=== PATIENT | female | born 1975 | race Caucasian/White ===

== ENCOUNTER 2025-01-21 09:10 | Emergency (ER) | payer SELFPAY ==
--- NOTE | 2025-01-21 10:16 | XR ---
EXAMINATION TYPE: XR hand complete RT DATE OF EXAM: 01/21/2025 10:06 AM COMPARISON: None. CLINICAL INDICATION: Female, 49 years old with history of pain, injury TECHNIQUE: Frontal, lateral and oblique images of the right hand are obtained. FINDINGS: There is no acute fracture/dislocation evident in the right hand. The joint spaces in the right hand appear within normal limits. The overlying soft tissue appears unremarkable. IMPRESSION: There is no acute fracture or dislocation in the right hand. [facility], , 01/21/2025 10:14 AM
--- NOTE | 2025-01-21 10:17 | XR ---
EXAMINATION TYPE: XR ribs RT w pa chest xray DATE OF EXAM: 01/21/2025 10:06 AM COMPARISON: None. CLINICAL INDICATION: Female, 49 years old with history of pain, falling injury. TECHNIQUE: Single frontal view of the chest is obtained. A frontal and oblique images of the right-si ded ribs. FINDINGS: There is no focal air space opacity, pleural effusion, or pneumothorax seen. The cardiac silhouette size is within normal limits. The osseous structures are intact. No acute displaced right-sided rib fracture is identified. Overlying soft tissue is unremarkable. IMPRESSION: No acute process. [facility], , 01/21/2025 10:15 AM
--- NOTE | 2025-01-21 10:20 | CT ---
EXAMINATION TYPE: CT brain jocelyn singh con DATE OF EXAM: 01/21/2025 COMPARISON: NONE HISTORY: pain after fall out of truck and hit head CT DLP: 1250.8 mGycm. Automated Exposure Control for Dose Reduction was Utilized. TECHNIQUE: CT scan of the head and cervical spine are performed without contrast. FINDINGS: There is no acute intracranial hemorrhage, mass effect, or midline shift identified. The ventricles and sulci are within normal limits in size. Chin-white matter differentiation is maintain ed. The calvarium is intact. At least partial empty sella morphology is noted. The globes are intact and the visualized sinuses are clear. Cervical spine is visualized in its entirety from C1 through upper thoracic levels and demonstrates s atisfactory alignment without evidence of acute fracture or dislocation. Prevertebral soft tissue ap pears within normal limits. The C1-C2 articulation is within normal limits on the coronal images. V ertebral body heights are maintained. Mild disc space narrowing with mild to moderate spurring at C6- C7 level. Lung apices are clear without pneumothorax. Thyroid gland is normal in size. IMPRESSION: 1. There is no acute fracture or dislocation evident in the cervical spine. 2. No acute intracranial hemorrhage or midline shift is seen. [facility], , 01/21/2025 10:17 AM
--- NOTE | 2025-01-21 10:21 | ED ---
Fall HPI - General Chief Complaint: Fall Stated Complaint: right side rib and shoulder blade pain -fell Time Seen by Provider: 01/21/25 09:19 Source: patient, RN notes reviewed Mode of arrival: ambulatory Limitations: no limitations - History of Present Illness Initial Comments: 49-year-old female presents emergency department complaint of slip and fall. She states she slipped getting out of her truck and states that she struck the running board. She states she struck her head,, complains of right sided rib right hand pain. She denies any back pain denies any hip pain. Patient is able to ambulate with no difficulty. Patient does complain of severe headache. - Related Data Allergies Allergy/AdvReac Type Severity Reaction Status Date / Time Penicillins Allergy Rash/Hives Verified 01/21/25 09:18 Sulfa (Sulfonamide Allergy Rash/Hives Verified 01/21/25 09:18 Antibiotics) Review of Systems ROS Statement: Those systems with pertinent positive or pertinent negative responses have been documented in the HPI. ROS Other: All systems not noted in ROS Statement are negative. Past Medical History Past Medical History: No Reported History, Cancer Additional Past Medical History / Comment(s): 2012 cervical ca/remission History of Any Multi-Drug Resistant Organisms: None Reported Additional Past Surgical History / Comment(s): 2012 cervical ca poyp removal Past Psychological History: No Psychological Hx Reported Smoking Status: Never smoker Past Alcohol Use History: None Reported Past Drug Use History: None Reported General Exam Limitations: no limitations General appearance: alert, in no apparent distress Head exam: Present: atraumatic, normocephalic, normal inspection Eye exam: Present: normal appearance, PERRL, EOMI. Absent: scleral icterus, conjunctival injection, periorbital swelling ENT exam: Present: normal exam, normal oropharynx, mucous membranes moist Neck exam: Present: normal inspection, full ROM. Absent: tenderness, meningismus, lymphadenopathy Respiratory exam: Present: normal lung sounds bilaterally, chest wall tenderness. Absent: respiratory distress, wheezes, rales, rhonchi, stridor Cardiovascular Exam: Present: regular rate, normal rhythm, normal heart sounds. Absent: systolic murmur, diastolic murmur, rubs, gallop, clicks Extremities exam: Present: full ROM, normal capillary refill. Absent: normal inspection (Mild right hand tenderness no obvious deformity), tenderness, pedal edema, joint swelling, calf tenderness Neurological exam: Present: alert, oriented X3, CN II-XII intact, reflexes normal. Absent: motor sensory deficit Skin exam: Present: warm, dry, intact, normal color. Absent: rash Course Vital Signs 01/21/25 01/21/25 09:12 11:02 Temperature 97.6 F 97.8 F Pulse Rate 74 70 Respiratory 18 16 Rate Blood Pressure 137/70 134/78 O2 Sat by Pulse 100 100 Oximetry Medical Decision Making - Medical Decision Making Was pt. sent in by a medical professional or institution (, [employer], COMPUTER NUMERICAL CONTROL MACHINIST, urgent care, hospital, or [place] [facility] facility...) When possible be specific @ -No Did you speak to anyone other than the patient for history (EMS, parent, family, police, friend...)? What history was obtained from this source @ -No Did you review nursing and triage notes (agree or disagree)? Why? @ -I reviewed and agree with nursing and triage notes Were old charts reviewed (outside hosp., previous admission, EMS record, old EKG, old radiological studies, urgent care reports/EKG's, [place] [facility] facility records)? Report findings @ -No old charts were reviewed Differential Diagnosis (chest pain, altered mental status, abdominal pain women, abdominal pain men, vaginal bleeding, weakness, fever, dyspnea, syncope, headache, dizziness, GI bleed, back pain, seizure, CVA, palpatations, mental health, musculoskeletal)? @ -Fall, rib fracture head contusion, intracranial hemorrhage, cervical fracture EKG interpreted by me (3pts min.). @ -None X-rays interpreted by me (1pt min.). @ -X-ray right sided ribs with PA chest no acute fracture X-ray right hand no acute fracture CT interpreted by me (1pt min.). @ -[CT brain, C-spine no acute intracranial hemorrhage,, mass effect no cervical fracture U/S interpreted by me (1pt. min.). @ -None done What testing was considered but not performed or refused? (CT, X-rays, U/S, labs)? Why? @ -None What meds were considered but not given or refused? Why? @ -None Did you discuss the management of the patient with other professionals (professionals i.e. , [employer], COMPUTER NUMERICAL CONTROL MACHINIST, lab, RT, psych nurse, manager social services, pole setter, teacher, ship's officer, case liner)? Give summary @ -No Was smoking cessation discussed for >3mins.? @ -No Was critical care preformed (if so, how long)? @ -No Were there social determinants of health that impacted care today? How? (Homelessness, low income, unemployed, alcoholism, drug addiction, transpor tation, low edu. Level, literacy, decrease access to med. care, senior living, rehab)? @ -No Was there de-escalation of care discussed even if they declined (Discuss DNR or withdrawal of care, Hospice)? DNR status @ -No What co-morbidities impacted this encounter? (DM, HTN, Smoking, COPD, CAD, Cancer, CVA, ARF, Chemo, Hep., AIDS, mental health diagnosis, sleep apnea, morbid obesity)? @ -None Was patient admitted / discharged? Hospital course, mention meds given and route, prescriptions, significant lab abnormalities, going to OR and other pertinent info. @ -Discharge patient presented after a slip and fall getting out of truck patient had severe headache, head injury was severe mechanism of injury CT was performed and negative. Patient negative x-rays Undiagnosed new problem with uncertain prognosis? @ -No Drug Therapy requiring intensive monitoring for toxicity (Heparin, Nitro, Insulin, Cardizem)? @ -No Were any procedures done? @ -No Diagnosis/symptom? @ -Closed head injury, rib contusion, hand contusion Acute, or Chronic, or Acute on Chronic? @ -Acute Uncomplicated (without systemic symptoms) or Complicated (systemic symptoms)? @ -Uncomplicated Side effects of treatment? @ -No Exacerbation, Progression, or Severe Exacerbation? @ -No Poses a threat to life or bodily function? How? (Chest pain, USA, CT, pneumonia, PE, COPD, DKA, ARF, appy, cholecystitis, CVA, Diverticulitis, Homicidal, Suicidal, threat to staff... and all critical care pts) @ -No Disposition Clinical Impression: Fall, Head injury, Contusion of rib on right side, Contusion, hand Disposition: HOME SELF-CARE Condition: Stable Instructions (If sedation given, give patient instructions): Rib Contusion (ED) Additional Instructions: Please return to the Emergency Department if symptoms worsen or any other concerns. Is patient prescribed a controlled substance at d/c from ED?: No Referrals: Cheko Bowers MD [Primary Care Provider] - 1-2 days Time of Disposition: 10:41
[2025-01-21 11:04] VITALS: BP 134/78; PULSE 70; RESP 16; TEMP 97.8
== END 2025-01-21 11:04 | disposition home or self-care (01) ==
LOC: EC 09:10
DX: S09.90XA Unspecified injury of head, initial encounter (principal); S20.211A Contusion of right front wall of thorax, initial encounter; S60.221A Contusion of right hand, initial encounter; Z88.0 Allergy status to penicillin; Z88.2 Allergy status to sulfonamides; W01.0XXA Fall on same level from slipping, tripping and stumbling without subsequent striking against object, initial encounter
CPT/HCPCS: 70450; 72125; 99284